=== PATIENT | male | born 1960 | race African-American/Black ===

== ENCOUNTER 2017-09-12 08:31 | Emergency (ER) | payer SELFPAY ==
[2017-09-12 08:39] VITALS: BP 180/115
[2017-09-12] MEDS ORDERED: LIDOCAINE 4%/TETRACAINE 0.5%/EPI 0.18% 5 ML TOPICAL SOLN TOP ONE (09:54)
[2017-09-12] MEDS ORDERED: OXYCODONE-ACETAMINOPHEN 5-325 MG TABLET PO ONE (10:26)
--- NOTE | 2017-09-12 10:30 | ER Document Report ---
ED Hand/Wrist Injury - General Chief Complaint: Hand Pain Stated Complaint: RIGHT FINGER PAIN Time Seen by Provider: 09/12/17 09:28 Mode of Arrival: Ambulatory Information source: Patient Notes: Patient is a 57-year-old male who presents to the ER today for swelling, pain 3 days to the right second digit at the base of the nailbed. Patient denies any drainage, fever, chills, injury. - Related Data Allergies/Adverse Reactions: No Known Allergies Allergy (Verified 09/12/17 09:06) Past Medical History - General Information source: Patient - Social History Smoking Status: Current Every Day Smoker Frequency of alcohol use: Occasional Drug Abuse: None Family History: Reviewed & Not Pertinent Patient has suicidal ideation: No Patient has homicidal ideation: No - Past Medical History Cardiac Medical History: Reports: Hx Hypertension Renal/ Medical History: Denies: Hx Peritoneal Dialysis Review of Systems - Review of Systems Constitutional: No symptoms reported EENT: No symptoms reported Cardiovascular: No symptoms reported Respiratory: No symptoms reported Gastrointestinal: No symptoms reported Genitourinary: No symptoms reported Male Genitourinary: No symptoms reported Musculoskeletal: No symptoms reported Skin: See HPI Hematologic/Lymphatic: No symptoms reported Neurological/Psychological: No symptoms reported Physical Exam - Vital signs Vitals: Temp Pulse Resp BP Pulse Ox 98.4 F 86 16 180/115 H 97 09/12/17 08:37 09/12/17 08:37 09/12/17 08:37 09/12/17 08:37 09/12/17 08:37 - Notes Notes: PHYSICAL EXAMINATION: GENERAL: Well-appearing and in no acute distress. HEAD: Atraumatic, normocephalic. EYES: Pupils equal round and reactive to light, extraocular movements intact, sclera anicteric, conjunctiva are normal. NECK: Normal range of motion, supple without lymphadenopathy LUNGS: CTAB and equal. No wheezes rales or rhonchi. HEART: Regular rate and rhythm without murmurs EXTREMITIES: Normal range of motion, no pitting edema. No cyanosis. NEUROLOGICAL: Cranial nerves grossly intact. Normal sensory/motor exams. PSYCH: Normal mood, normal affect. SKIN: Warm, Dry, normal turgor, edema, erythema, purulence obviously under skin at base of the nailbed to the second digit of the right hand, consistent with paronychia, no tenderness to the palmar surface of the finger, pad, gemma mayer appreciated Course - Re-evaluation Re-evalutation: 09/12/17 10:28 Incision was performed with 18-gauge needle successfully with green purulence - Vital Signs Vital signs: Temp Pulse Resp BP Pulse Ox 98.4 F 86 16 180/115 H 97 09/12/17 08:37 09/12/17 08:37 09/12/17 08:37 09/12/17 08:37 09/12/17 08:37 Procedures - Incision and Drainage Right 2nd digit Time completed: 10:20 Type: Simple I&D procedure: Betadine prep applied Incision Method: Incision made with needle Amount/type of drainage: green drainage Discharge - Discharge Clinical Impression: Paronychia Condition: Stable Disposition: HOME, SELF-CARE Additional Instructions: Return immediately for any new or worsening symptoms. Follow up with primary care provider, call tomorrow to make followup appointment. Prescriptions: Cephalexin [Cephalexin 500 MG Capsule] 1 cap PO BID #14 capsule Forms: Return to Work
== END 2017-09-12 10:52 | disposition home or self-care (01) ==
LOC: ER 08:31
DX: L03.011 Cellulitis of right finger (principal); I10 Essential (primary) hypertension; F17.200 Nicotine dependence, unspecified, uncomplicated
CPT/HCPCS: 99283; 10060; J3490